=== PATIENT | female | born 1965 | race Caucasian/White ===

== ENCOUNTER 2020-07-26 14:54 | Emergency (ER) | payer OTHER, SELFPAY ==
[2020-07-26 15:00] VITALS: BP 127/65; PULSE 105; RESP 20; TEMP 36.8; O2SAT 99
[2020-07-26] MEDS: DACRIOSE EYE IRRIGATION 118 ML BOTTLE ×2 (15:15→15:20)
--- NOTE | 2020-07-26 16:08 | ED.GENADULT ---
HPI - General Adult General Chief complaint: Eye Problems Stated complaint: glass in eye Source: patient Mode of arrival: ambulatory History of Present Illness HPI narrative: Jayshree presented to the ED with concerns of glass in her left eye. Her dropped a glass bottle next to her and it felt like a piece went into her eye. She bruised it out and washed her eye profusely. However, it still felt like something was there. Because of this she came to the ED. No vision changes or other injuries. Related Data Allergies Allergy/AdvReac Type Severity Reaction Status Date / Time Sulfa (Sulfonamide AdvReac Unknown Verified 07/26/20 16:14 Antibiotics) Review of Systems Constitutional: Constitutional: Reports no additional constitutional complaints Eyes: Eyes: Reports as per HPI ENT: Reports system reviewed and no additional complaints, except as documented Cardiovascular: Cardiovascular: Reports no additional cardiovascular complaints Respiratory: Respiratory: Reports no additional respiratory complaints Gastrointestinal: Gastrointestinal: Reports no additional gastrointestinal complaints Genitourinary: Genitourinary: Reports no additional female genitourinary complaints Musculoskeletal: Musculoskeletal: Reports no additional musculoskeletal complaints Integumentary/Breasts: Skin/Breast: Reports system reviewed and no additional complaints, except as docu Neurologic: Reports system reviewed and no additional complaints, except as documented Psychiatric: Psychiatric: Reports no additional psychiatric complaints Endocrine: Endocrine: Reports no additional endocrine complaints Hematologic/Lymphatic: Hematologic/Lymphatic: Reports no additional hematologic/lymphatic complaints Allergic/Immunologic: Allergic/Immunologic: Reports no additional allergic/immunologic complaints [facility] Social History Social History Gender identity (if verbalized by the patient): Female Exam Const: General: no acute distress and alert Orientation/consciousness: patient oriented x3 Limitations: No altered mental status HENMT: Head: normal to inspection Eyes: Conjunctivae: conjunctivae normal Pupils: Equal, round and reactive pupils present EOM: EOMs intact bilaterally Direct Ophthalmoscopy: No no photophobia and No photophobia Other: fluorescein eye exam showed a small 2mm in diameter round abriason medial to the left pupil Eyes/upper lids images: 1. Neck: Neck: normal visual inspection Resp: Effort & Inspection: normal respiratory effort Cardio: Rate: regular rate Skin: General skin exam: normal color Rashes: no rashes Neuro: General: patient oriented x3, moves all extremities and CN's II-XI intact bilaterally Course Course Emergency Course: Eye irrigated profusely. Tetracaine eye drops were placed before the fluorescein eye exam was done. Results as above. She was discharged with cipro eye drops for infection prevention. Vital Signs Vital signs: Vital Signs Temperature 98.2 F 07/26/20 15:00 Pulse Rate 105 H 07/26/20 15:00 Respiratory Rate 20 07/26/20 15:00 Blood Pressure 127/65 07/26/20 15:00 Pulse Oximetry 99 07/26/20 15:00 Temperature 98.0 F 07/26/20 16:23 Pulse Rate 101 H 07/26/20 16:23 Respiratory Rate 20 07/26/20 16:23 Blood Pressure 133/84 07/26/20 16:23 Pulse Oximetry 99 07/26/20 16:23 Medical Decision Making Vital Signs Vital Signs: Vital Signs Temperature 98.2 F 07/26/20 15:00 Pulse Rate 105 H 07/26/20 15:00 Respiratory Rate 20 07/26/20 15:00 Blood Pressure 127/65 07/26/20 15:00 Pulse Oximetry 99 07/26/20 15:00 Temperature 98.0 F 07/26/20 16:23 Pulse Rate 101 H 07/26/20 16:23 Respiratory Rate 20 07/26/20 16:23 Blood Pressure 133/84 07/26/20 16:23 Pulse Oximetry 99 07/26/20 16:23 Discharge Plan Discharge Clinical Impression: Corneal abrasion
[2020-07-26 16:23] VITALS: BP 133/84; PULSE 101; RESP 20; TEMP 36.7; O2SAT 99
== END 2020-07-26 16:25 | disposition home or self-care (01) ==
PROVIDERS: Emergency Provider Family Medicine; PCP Physician Assistant
DX: S05.02XA Injury of conjunctiva and corneal abrasion without foreign body, left eye, initial encounter (principal)
CPT/HCPCS: 99283; A9270